=== PATIENT | male | born 1980 | race African-American/Black ===

== ENCOUNTER 2021-12-03 02:32 | Inpatient (IN) | payer MEDICAID ==
[~2021-12-03] VITALS: Ht 188 cm; Wt 95.3 kg
[2021-12-03] MEDS ORDERED: DICYCLOMINE 10 MG/5 ML ORAL SYR PO STA (04:18)
[2021-12-03] MEDS ORDERED: VISCOUS LIDOCAINE 2% 15 ML UDC PO STA (04:18)
[2021-12-03] MEDS ORDERED: MAGNESIUM/ALUMINUM HYDROXIDE/SIMETHICONE 30ML UDC PO STA (04:18)
[2021-12-03 04:28] LABS: BASOPHILS % 0.5 % (0.0-2.0); EOSINOPHILS % 2.1 % (0.0-5.0); HEMATOCRIT. 45.1 % (42.0-52.0); HEMOGLOBIN. 15.4 g/dL (14.0-18.0); LYMPHOCYTES % 32.9 % (20.0-50.0); MEAN CORPUSCULAR VOLUME 84.7 fL (80.0-94.0); MEAN PLATELET VOLUME 8.8 fl (7.4-10.4); MONOCYTES % 9.5 % (2.0-8.0); PLATELET 192 x1000/uL (130-400); RED BLOOD CELL COUNT 5.33 mill/uL (4.7-6.1); RED CELL DISTRIBUTION WIDTH 13.7 % (11.6-14.6)
[2021-12-03 05:15] LABS: CHLORIDE 104 mEq/L (98-107)
[2021-12-03] MEDS ORDERED: MORPHINE SULFATE 4 MG/ML CPJ (NOT FOR IM USE) IV ONE (07:00)
[2021-12-03] MEDS ORDERED: IOHEXOL-350 100 ML BOTTLE ONE (07:17)
[2021-12-03 09:00] VITALS: BP 109/68
[2021-12-03] MEDS ORDERED: ACETAMINOPHEN 325MG TABLET PO PRN (09:15)
[2021-12-03] MEDS ORDERED: ONDANSETRON HCL 4MG/2ML INJ IV PRN (09:15)
[2021-12-03 10:51] VITALS: BP 135/75
[2021-12-03] MEDS ORDERED: INFLUENZA VACCINE 05/PF 0.5 ML SYRINGE IM ONE (15:30)
[2021-12-03] MEDS ORDERED: PNEUMOCOCCAL 23-VAL P-SAC VAC 0.5 ML IM ONE (15:30)
[2021-12-03 16:00] VITALS: BP 108/61
[2021-12-03 18:19] VITALS: BP 108/61
[2021-12-03 18:52] LABS: *AMPHETAMINES SCREEN URINE NEGATIVE (NEGATIVE); *BARBITURATES SCREEN URINE NEGATIVE (NEGATIVE); *BENZODIAZEPINES SCREEN URINE NEGATIVE (NEGATIVE); *COCAINE SCREEN URINE NEGATIVE (NEGATIVE); CANNABINOID URINE SCREEN NEGATIVE (NEGATIVE); METHADONE URINE SCREEN NEGATIVE (NEGATIVE); OPIATES URINE SCREEN PRESUMTIVE POSITIVE (NEGATIVE); PHENCYCLIDINE URINE SCREEN NEGATIVE (NEGATIVE)
[2021-12-03] MEDS ORDERED: FAMOTIDINE 20MG TABLET PO SCH (21:00)
== END 2021-12-03 19:32 | disposition home or self-care (01) | DRG 243 ==
LOC: ER 03:05 → 7EST 06:56 → EDBEDREQ 07:00 → EDBEDREQTM 07:00 → ENRESERV 07:48
PROVIDERS: ADMIT Internal Medicine; ATTEND Internal Medicine
DX: K21.9 Gastro-esophageal reflux disease without esophagitis (principal); R07.9 Chest pain, unspecified; Z88.8 Allergy status to other drugs, medicaments and biological substances; Z90.49 Acquired absence of other specified parts of digestive tract
CPT/HCPCS: 36415; 71045; 71275; 80053; 80305; 83605; 83880; 84484; 85025; 85379; 90686; 90732; 93005; 93306; 99285; J2270; Q9967

== ENCOUNTER 2022-04-18 13:35 | Emergency (ER) | payer MEDICAID ==
[~2022-04-18] VITALS: Ht 182.9 cm; Wt 100.0 kg
[2022-04-18 13:41] VITALS: BP 127/75
[2022-04-18 14:18] LABS: CLARITY URINE CLEAR (CLEAR); COLOR URINE YELLOW (YELLOW); KETONES URINE NEGATIVE (NEGATIVE); LEUKOCYTE ESTERASE URINE NEGATIVE (NEGATIVE); NITRITE URINE NEGATIVE (NEGATIVE); OCCULT BLOOD URINE NEGATIVE (NEGATIVE); PH URINE 5.5 (4.5-8.0); PROTEIN URINE NEGATIVE (NEGATIVE); SPECIFIC GRAVITY URINE 1.024 (1.005-1.030); UROBILINOGEN URINE 0.2 E.U./dL (0.2-1.0)
== END 2022-04-18 16:32 | disposition left against medical advice (07) ==
LOC: ER 13:35
DX: Z53.21 Procedure and treatment not carried out due to patient leaving prior to being seen by health care provider (principal)
CPT/HCPCS: 81003; 99281